=== PATIENT | male | born 1980 | race African-American/Black ===

== ENCOUNTER 2021-01-24 14:45 | Emergency (ER) | payer MEDICAID, OTHER ==
[~2021-01-24] VITALS: Ht 175.3 cm; Wt 133.0 kg
[~2021-01-24 14:45] MED LIST: KEPPRA; PHEN100C4 PO
[2021-01-24 16:01] LABS: BASOPHILS % 0.6 % (0.0-2.0); EOSINOPHILS % 2.2 % (0.0-5.0); HEMATOCRIT. 45.9 % (42.0-52.0); HEMOGLOBIN. 15.1 g/dL (14.0-18.0); LYMPHOCYTES % 19.6 % (20.0-50.0); MEAN CORPUSCULAR HEMOGLOBIN 26.8 pg (28.0-32.0); MEAN CORPUSCULAR VOLUME 81.5 fL (80.0-94.0); MEAN PLATELET VOLUME 8.7 fl (7.4-10.4); MONOCYTES % 11.3 % (2.0-8.0); NEUTROPHILS % 66.3 % (40.0-76.0); PLATELET 218 x1000/uL (130-400); RED BLOOD CELL COUNT 5.64 mill/uL (4.7-6.1); RED CELL DISTRIBUTION WIDTH 16.2 % (11.6-14.6)
[2021-01-24 16:09] LABS: CHLORIDE 108 mEq/L (98-107)
[2021-01-24 17:55] VITALS: BP 156/75
[2021-01-24] MEDS ORDERED: ONDA4TAB5 MT (19:11)
[2021-01-24] MEDS ORDERED: IMOD MT (19:12)
== END 2021-01-24 19:24 | disposition home or self-care (01) ==
LOC: ER 14:45
DX: B34.9 Viral infection, unspecified (principal); R05 Cough; R07.9 Chest pain, unspecified; R42 Dizziness and giddiness; M79.10 Myalgia, unspecified site; F19.10 Other psychoactive substance abuse, uncomplicated; R11.0 Nausea; R19.7 Diarrhea, unspecified; Z79.899 Other long term (current) drug therapy
CPT/HCPCS: 36415; 71045; 80053; 85025; 93005; 99285